=== PATIENT | female | born 1985 | race Two or more races ===

== ENCOUNTER 2018-09-30 06:14 | Emergency (ER) | payer OTHER ==
[~2018-09-30] VITALS: Ht 149.9 cm; Wt 70.0 kg
[2018-09-30] MEDS ORDERED: MORPHINE SULFATE 4 MG/ML CPJ (NOT FOR IM USE) IV STA (07:04)
[2018-09-30] MEDS ORDERED: ONDANSETRON HCL 4MG/2ML INJ IV STA (07:04)
[2018-09-30] MEDS ORDERED: SODIUM CHLORIDE 0.9% 1,000 ML IV ONE (07:04)
[2018-09-30 07:26] LABS: BASOPHILS % 0.6 % (0.0-2.0); HEMATOCRIT. 39.3 % (36.0-48.0); HEMOGLOBIN. 12.3 g/dL (12.0-16.0); LYMPHOCYTES % 13.7 % (20.0-50.0); MEAN CORPUSCULAR HEMOGLOBIN 22.9 pg (28.0-32.0); MEAN PLATELET VOLUME 8.1 fl (7.4-10.4); MONOCYTES % 6.4 % (2.0-8.0); NEUTROPHILS % 79.3 % (40.0-76.0); PLATELET 280 x1000/uL (130-400); RED BLOOD CELL COUNT 5.38 mill/uL (4.2-5.4); RED CELL DISTRIBUTION WIDTH 15.5 % (11.6-14.6)
[2018-09-30 07:30] LABS: CHLORIDE 109 mEq/L (98-107)
[2018-09-30 07:50] LABS: HCG SCREEN NEGATIVE
[2018-09-30 09:13] LABS: CLARITY URINE CLOUDY (CLEAR); COLOR URINE YELLOW (YELLOW); KETONES URINE 1+ (NEGATIVE); LEUKOCYTE ESTERASE URINE NEGATIVE (NEGATIVE); NITRITE URINE NEGATIVE (NEGATIVE); OCCULT BLOOD URINE NEGATIVE (NEGATIVE); PROTEIN URINE 1+ (NEGATIVE); SPECIFIC GRAVITY URINE 1.031 (1.005-1.030)
[2018-09-30 09:48] LABS: *AMPHETAMINES SCREEN URINE NEGATIVE (NEGATIVE); *BARBITURATES SCREEN URINE NEGATIVE (NEGATIVE)
[2018-09-30 09:49] LABS: *BENZODIAZEPINES SCREEN URINE NEGATIVE (NEGATIVE); METHADONE URINE SCREEN NEGATIVE (NEGATIVE)
[2018-09-30 09:50] LABS: PHENCYCLIDINE URINE SCREEN NEGATIVE (NEGATIVE)
[2018-09-30 09:59] LABS: *COCAINE SCREEN URINE PRESUMTIVE POSITIVE (NEGATIVE); CANNABINOID URINE SCREEN PRESUMTIVE POSITIVE (NEGATIVE); OPIATES URINE SCREEN PRESUMTIVE POSITIVE (NEGATIVE)
[2018-09-30 10:26] VITALS: BP 108/68
[2018-09-30] MEDS ORDERED: HYDROCODONE/ACETAMINOPHEN 5/325MG TABLET PO ONE (10:30)
== END 2018-09-30 11:01 | disposition home or self-care (01) ==
LOC: ER 06:14
DX: G89.29 Other chronic pain (principal); N39.0 Urinary tract infection, site not specified; I10 Essential (primary) hypertension; F12.10 Cannabis abuse, uncomplicated
CPT/HCPCS: 36415; 80053; 80305; 81003; 83690; 84703; 85025; 96361; 96374; 96375; 99284; J2270; J2405; J7030

== ENCOUNTER 2019-04-18 01:16 | Emergency (ER) | payer OTHER ==
[~2019-04-18] VITALS: Ht 152.4 cm; Wt 66.0 kg
[2019-04-18] MEDS ORDERED: FAMOTIDINE 20MG/2ML VIAL IV STA (02:01)
[2019-04-18] MEDS ORDERED: KETOROLAC 30MG/ML VIAL IV STA (02:01)
[2019-04-18] MEDS ORDERED: ONDANSETRON HCL 4MG/2ML INJ IV STA (02:01)
[2019-04-18] MEDS ORDERED: SODIUM CHLORIDE 0.9% 1,000 ML IV ONE (02:01)
[2019-04-18 02:21] LABS: BASOPHILS % 1.1 % (0.0-2.0); EOSINOPHILS % 0.8 % (0.0-5.0); HEMATOCRIT. 36.8 % (36.0-48.0); LYMPHOCYTES % 26.7 % (20.0-50.0); MEAN CORPUSCULAR HEMOGLOBIN 23.5 pg (28.0-32.0); MEAN CORPUSCULAR VOLUME 72.1 fL (81.0-99.0); MEAN PLATELET VOLUME 8.4 fl (7.4-10.4); MONOCYTES % 6.2 % (2.0-8.0); NEUTROPHILS % 65.2 % (40.0-76.0); PLATELET 273 x1000/uL (130-400); RED BLOOD CELL COUNT 5.11 mill/uL (4.2-5.4); RED CELL DISTRIBUTION WIDTH 14.4 % (11.6-14.6)
[2019-04-18 02:27] LABS: CHLORIDE 112 mEq/L (98-107)
[2019-04-18 02:28] LABS: PROTHROMBIN TIME 10.2 sec (9.6-11.0)
[2019-04-18] MEDS ORDERED: ONDANSETRON HCL 4MG/2ML INJ IV ONE (03:30)
[2019-04-18] MEDS ORDERED: MORPHINE SULFATE 4 MG/ML CPJ (NOT FOR IM USE) IV ONE (03:30)
[2019-04-18 06:29] VITALS: BP 121/79
== END 2019-04-18 06:34 | disposition home or self-care (01) ==
LOC: ER 01:16
DX: R10.13 Epigastric pain (principal); R11.10 Vomiting, unspecified; F12.10 Cannabis abuse, uncomplicated; I10 Essential (primary) hypertension
CPT/HCPCS: 36415; 80053; 80320; 83690; 85025; 85610; 96361; 96374; 96375; 96376; 99283; J1885; J2270; J2405; J3490; J7030; G0480